=== PATIENT | male | born 1980 | race African-American/Black ===

== ENCOUNTER 2022-06-12 15:01 | Emergency (ER) | payer OTHER ==
[~2022-06-12] VITALS: Ht 177.8 cm; Wt 68.0 kg
[2022-06-12 15:03] VITALS: BP 123/100
[2022-06-12 17:27] LABS: BASOPHILS % 0.6 % (0.0-2.0); EOSINOPHILS % 1.9 % (0.0-5.0); HEMATOCRIT. 42.7 % (42.0-52.0); HEMOGLOBIN. 13.9 g/dL (14.0-18.0); LYMPHOCYTES % 22.5 % (20.0-50.0); MEAN CORPUSCULAR HEMOGLOBIN 26.5 pg (28.0-32.0); MEAN CORPUSCULAR VOLUME 81.3 fL (80.0-94.0); MONOCYTES % 10.2 % (2.0-8.0); NEUTROPHILS % 64.8 % (40.0-76.0); PLATELET 334 x1000/uL (130-400); RED BLOOD CELL COUNT 5.26 mill/uL (4.7-6.1); RED CELL DISTRIBUTION WIDTH 15.2 % (11.6-14.6)
[2022-06-12 17:32] LABS: CHLORIDE 103 mEq/L (98-107)
[2022-06-12 17:38] LABS: ETHANOL BLOOD < 10 mg/dL
== END 2022-06-12 18:43 ==
LOC: ER 15:40
DX: R56.9 Unspecified convulsions (principal)
CPT/HCPCS: 36415; 71045; 80053; 80307; 80320; 80329; 82010; 85025; 93005; 99285; G0480